=== PATIENT | male | born 1975 | race Caucasian/White ===

== ENCOUNTER 2021-05-27 14:02 | Emergency (ER) | payer OTHER ==
[~2021-05-27] VITALS: Ht 182.9 cm; Wt 115.7 kg
[~2021-05-27 14:02] MED LIST: LISI10TA29 PO; RABE20TA18 PO
[2021-05-27 14:20] VITALS: BP_SYST 137
[2021-05-27] MEDS ORDERED: LIDOCAINE 2%, 20 ML MDV INJ ONE (15:45)
[2021-05-27] MEDS ORDERED: BACITRACIN ZINC 15 GM TOPICAL OINTMENT TP SCH (17:30)
[2021-05-27] MEDS ORDERED: NAPR-1172 PO (17:38)
[2021-05-27] MEDS ORDERED: CEPH250C PO (17:38)
[2021-05-27] MEDS ORDERED: BACITRACIN 1 GM OINT TP ONE (18:05)
[2021-05-27 18:09] VITALS: BP_SYST 132
== END 2021-05-27 18:09 | disposition home or self-care (01) ==
LOC: SED 14:02
DX: S92.425A Nondisplaced fracture of distal phalanx of left great toe, initial encounter for closed fracture (principal); I10 Essential (primary) hypertension; K21.9 Gastro-esophageal reflux disease without esophagitis; Z88.0 Allergy status to penicillin; Z79.899 Other long term (current) drug therapy; W20.8XXA Other cause of strike by thrown, projected or falling object, initial encounter; Y93.89 Activity, other specified; Y92.89 Other specified places as the place of occurrence of the external cause; Y99.0 Civilian activity done for income or pay
CPT/HCPCS: 99283

== ENCOUNTER 2022-01-27 07:33 | Day surgery (SDC) | payer OTHER ==
[~2022-01-27] VITALS: Ht 182.9 cm; Wt 117.5 kg
[~2022-01-27 07:33] MED LIST changes: +CEPH250C PO; +CLINDAMYCIN PHOS 600 MG/ D5W 50 ML PREMIX IV ONE; +NAPR-1172 PO
[2022-01-27] MEDS ORDERED: ROCURONIUM BROMIDE 10 MG/ML (ZEMURON) IV ONE (09:08)
[2022-01-27] MEDS ORDERED: SUGAMMADEX SODIUM 200 MG/2 ML VIAL IV ONE (09:08)
[2022-01-27] MEDS ORDERED: NS IRRIG SOLN 1000 ML IR ONE (09:08)
[2022-01-27] MEDS ORDERED: LIDOCAINE 1% 10 MG/ML, 20 ML MDV INJ ONE (09:08)
[2022-01-27] MEDS ORDERED: MIDAZOLAM HCL 5 MG/5 ML VIAL IVP ONE (09:08)
[2022-01-27] MEDS ORDERED: KETOROLAC TROMETHAMINE 30 MG VIAL IVP ONE (09:08)
[2022-01-27] MEDS ORDERED: LR 1,000 ML IV.SOLN IV ONE (09:08)
[2022-01-27] MEDS ORDERED: PROPOFOL 200MG/ 20ML VIAL (DIPRIVAN) IV ONE (09:08)
[2022-01-27] MEDS ORDERED: DESFLURANE 15 MIN GAS INH ONE (09:08)
[2022-01-27] MEDS ORDERED: DEXAMETHASONE SOD PHOSPHATE 4 MG/ML VIAL IVP ONE (09:08)
[2022-01-27] MEDS ORDERED: ONDANSETRON HCL 4 MG/2 ML VIAL IVP ONE (09:08)
[2022-01-27] MEDS ORDERED: fentaNYL CITRATE/PF 100 MCG/2 ML AMP IVP ONE (09:08)
[2022-01-27] MEDS ORDERED: BUPIVACAINE /EPINEPHRINE/PF 0.25% 30 ML VIAL INJ ONE (09:08)
[2022-01-27] MEDS ORDERED: ACETAMINOPHEN I.V. 1000 MG 100 ML IV ONE (09:59)
[2022-01-27] MEDS ORDERED: HYDROmorphone 1 MG/ML INJ. CARTRIDGE IVP PRN ×2 (10:00)
[2022-01-27] MEDS ORDERED: MIDAZOLAM HCL 2 MG/2 ML VIAL (VERSED) IVP PRN (10:00)
[2022-01-27] MEDS ORDERED: hydrALAZINE HCL 20 MG/ML VIAL IVP PRN (10:00)
[2022-01-27] MEDS ORDERED: MEPERIDINE HCL/PF 25 MG/ML DISP.SYRIN IVP PRN (10:00)
[2022-01-27] MEDS ORDERED: METOCLOPRAMIDE HCL 10 MG/2 ML VIAL IVP PRN (10:00)
[2022-01-27] MEDS ORDERED: LABETALOL 100 MG/ 20ML VIAL IVP PRN (10:00)
[2022-01-27] MEDS ORDERED: LR 1,000 ML IV SCH (10:00)
[2022-01-27] MEDS ORDERED: D5/0.45 NS 1,000 ML IV SCH (10:15)
[2022-01-27 13:23] VITALS: BP_SYST 125
== END 2022-01-27 12:53 | disposition home or self-care (01) ==
LOC: SDS 07:33 → SMU 07:34 → SDS 12:53
PROVIDERS: ATTEND Colon & Rectal Surgery
DX: L05.01 Pilonidal cyst with abscess (principal); I10 Essential (primary) hypertension; K21.9 Gastro-esophageal reflux disease without esophagitis; E66.9 Obesity, unspecified; F41.9 Anxiety disorder, unspecified; G43.909 Migraine, unspecified, not intractable, without status migrainosus; Z88.0 Allergy status to penicillin; Z79.82 Long term (current) use of aspirin; Z79.899 Other long term (current) drug therapy; Z20.822 Contact with and (suspected) exposure to COVID-19
CPT/HCPCS: 11771; 36415 ×2; 87426; J0131; J1100; J1885; J2001; J2250; J2405; J2704; J3010; J3490 ×3; J7120; U0003

== ENCOUNTER 2023-06-18 12:49 | Outpatient (CLI) | payer OTHER ==
[~2023-06-18 12:49] MED LIST changes: -CLINDAMYCIN PHOS 600 MG/ D5W 50 ML PREMIX IV ONE
== END 2023-06-18 18:27 | disposition home or self-care (01) ==
LOC: SMI 12:49
PROVIDERS: ATTEND Specialist
DX: M51.36 Other intervertebral disc degeneration, lumbar region (principal); M71.38 Other bursal cyst, other site
CPT/HCPCS: 72148